=== PATIENT | female | born 1945 | race Two or more races ===

== ENCOUNTER → 2017-08-14 | Outpatient (CLI) | payer MEDICARE ==
[2015-06-12 15:25] VITALS: BP 143/59
[~2017-08-14] MED LIST: AMLO5TAB2 PO; AMLO5TAB4 PO; ASPI-630 PO; ATOR10TA PO; ATOR10TA60 PO; CARV6.25 PO; CARV6.252; CHOL100013 PO; CYCL100C PO; CYCL100S PO; CYCL25CA PO; ERGO400T PO; FURO-68 PO; INSU100C SQ; INSU100V; INSU100V8; INSU100V8 SQ; MYCO500T PO; POTA20TA12 PO; POTA20TA4 PO; home o2
--- NOTE | 2017-08-14 15:44 | CARD ---
APPROVED REPORT EXAM: Two-dimensional and M-mode echocardiogram with Doppler and color Doppler. Other Information Quality : Average INDICATION Cardiomyopathy 2D DIMENSIONS Left Atrium(2D)4.7 (1.6-4.0cm)IVSd1.3 (0.7-1.1cm) Aortic Root(2D)2.7 (2.0-3.7cm)LVDd5.1 (3.9-5.9cm) LVOT Diameter2.0 (1.8-2.4cm)PWd1.3 (0.7-1.1cm) LVDs4.0 (2.5-4.0cm)FS (%) 20.6 % SV50.7 mlLVEF(%)40.0 (>50%) Aortic Valve AoV Peak Bowen.132.7cm/sAoV VTI28.3cm AO Peak GR.7.0mmHgLVOT Peak Bowen.93.2cm/s AO Mean GR.4mmHgAVA (VMAX)2.18cm2 DANTE (VTI)2.20cm2 Mitral Valve MV E Fymkfnug998.0cm/sMV DECEL CMDQ074iw MV A Mklovoua56.6cm/sE/A Ratio1.6 Tricuspid Valve TR P. Flsnnlhp436ds/sRAP [id number] TR Peak Gr.07qgYnRTQU07hrPr LEFT VENTRICLE The Left Ventricle is mildly dilated. There is mild concentric left ventricular hypertrophy. Left harish tricle systolic function is mildly impaired. The Ejection Fraction is 40%. Possible mild hypokinesis/ akinesis in the apical septal wall. Possible septal bounce noted. There is mild global hypokinesis of the left ventricle. Transmitral Doppler flow pattern is Grade I-abnormal relaxation pattern. RIGHT VENTRICLE The right ventricle is mildly dilated. ATRIA The left atrium is borderline dilated. The right atrium is moderately dilated. AORTIC VALVE The aortic valve is mildly thickened but opens well. Doppler and Color Flow revealed no significant a ortic regurgitation. There is no significant aortic valvular stenosis. MITRAL VALVE The mitral valve is calcified but opens well. There is no evidence of mitral valve prolapse. There is no mitral valve stenosis. Doppler and Color-flow revealed moderate mitral regurgitation. TRICUSPID VALVE The anterior leaflet is calcified. Doppler and Color Flow revealed moderate tricuspid regurgitation. There is moderate pulmonary hypertension. The PA pressure was estimated at 54 mmHg. Reversal of flow seen in hepatic vein noted. There is no tricuspid valve stenosis. PULMONIC VALVE The pulmonic valve is mildly thickened. Doppler and Color Flow revealed moderate pulmonic valvular re gurgitation. There is no pulmonic valvular stenosis. GREAT VESSELS The aortic root is normal in size. The ascending aorta is normal in size. The IVC is normal in size a nd collapses >50% with inspiration. PERICARDIAL EFFUSION There is moderate left pleural effusion. There is no evidence of significant pericardial effusion. Critical Notification Critical Value: No <Conclusion> Left ventricle systolic function is mildly impaired. The Ejection Fraction is 40%. Transmitral Doppler flow pattern is Grade I-abnormal relaxation pattern. The Left Ventricle is mildly dilated. There is mild concentric left ventricular hypertrophy. The right ventricle is mildly dilated. The left atrium is borderline dilated. The right atrium is moderately dilated. The aortic valve is mildly thickened but opens well. Doppler and Color-flow revealed moderate mitral regurgitation. Doppler and Color Flow revealed moderate tricuspid regurgitation. There is moderate pulmonary hypertension. The PA pressure was estimated at 54 mmHg. Reversal of flow seen in hepatic vein noted. Doppler and Color Flow revealed moderate pulmonic valvular regurgitation. There is no evidence of significant pericardial effusion. There is moderate left pleural effusion.
== END | disposition home or self-care (01) ==
LOC: ECHO 12:40
PROVIDERS: ATTEND Internal Medicine Cardiovascular Disease
DX: I08.1 Rheumatic disorders of both mitral and tricuspid valves (principal); I42.9 Cardiomyopathy, unspecified; I25.5 Ischemic cardiomyopathy; I27.20 Pulmonary hypertension, unspecified; J90 Pleural effusion, not elsewhere classified; Z94.0 Kidney transplant status
CPT/HCPCS: 93306